=== PATIENT | female | born 2000 | race Caucasian/White ===

== ENCOUNTER 2019-10-24 01:46 | Emergency (ER) | payer MEDICAID, SELFPAY ==
[2018-11-30 08:39] VITALS: BMI 22.8
[2019-10-24 01:48] VITALS: BP 142/96; PULSE 88; RESP 14; TEMP 37.1; O2SAT 99; BMI 32.0
[2019-10-24 02:04] LABS: Bacteria 0 SEEN /hpf (None Seen); Mucous, Urine 0 SEEN /hpf (<or=2+); Red Blood Cells-Urine 0 SEEN /hpf (0-5); White Blood Cells 0 SEEN /hpf (0-5)
[2019-10-24 02:05] LABS: Color, Urine Yellow (Yellow); Glucose, Dipstick Normal (Normal); Ketone-Dipstick Negative (Negative); Leukocyte Esterase-Dipstick Negative /ul (Negative); Nitrite-Dipstick Negative (Negative); Occult Blood-Urine Negative /ul (Negative); Protein-Dipstick Negative (Negative); Urine Bilirubin Dipstick Negative (Negative); Urine Clarity Clear (Clear); Urine Urobilinogen Normal (Normal); Urine pH 6.5 (5.0 - 8.0)
[2019-10-24 02:12] LABS: Internal QC Validated? YES +Cl - CLEAR BKGD; Pregnancy, Urine Positive Negative
[2019-10-24 02:13] LABS: Squamous Epithelial Cells - UA 0-5 SEEN /hpf (5-10)
--- NOTE | 2019-10-24 02:19 | ED.DCSUM_ITS ---
History of Present Illness Chief Complaint: Complaint Informant: Patient Narrative: 19-year-old female presents with concern for positive test. Patient presented because she wanted confirm her . States that she took for several tests at home all which were positive. [place] like she might have a urinary tract infection coming on as well. Denies any fever, chills, abdominal pain, vaginal bleeding. Last menstrual period was 5 weeks ago. Past Medical History - Allergies and Home Meds Allergies/Adverse Reactions: Allergies azithromycin [From Zithromax Z-Malcolm] Allergy (Verified 11/30/18 08:37) Unknown Penicillins Allergy (Verified 11/30/18 08:37) Unknown cephalexin monohydrate [From Keflex] Adverse Reaction (Verified 06/25/14 21:27) Itching Primary Care Physician: Darcy Haynes,Out of [Primary Care Provider] - Past Medical History: None Surgical History: no surgical history Lives: Spouse/ Significant Other Smoking Status: Current every day smoker Alcohol: None Drugs: None Review of Systems General: Denies: Chills, Fever, Sweats Eyes: Denies: Visual changes - bilaterally, Diplopia ENT: Denies: Rhinorrhea, Sore throat Cardiovascular: Denies: Chest pain, Palpitations Respiratory: Denies: Dyspnea, Cough, Dyspnea on exertion Gastrointestinal: Denies: Abdominal pain, Nausea, Vomiting, Diarrhea, Melena, Hematochezia Genitourinary: Denies: Dysuria, Hematuria, Frequency Musculoskeletal: Denies: Back pain, Extremity Pain Skin: Denies: Rash, Wounds Neurological: Denies: Headache, Weakness, Numbness Physical Exam Vital Signs/Narrative: Vital Signs Temp Pulse Resp BP Pulse Ox 10/24/19 01:48 98.7 F 88 14 142/96 H 99 Inital Vital Signs reviewed: Yes General: Well nourished, Well developed, No Acute Distress Head: Normocephalic, Atraumatic Eyes: Perrl, EOMI ENT: Moist mucous membranes, No rhinorrhea Neck: Supple, Nontender Cardiovascular: Regular rate, Regular rhythm, No murmurs Respiratory: No distress, CTA bilaterally, Chest nontender Abdomen: Soft, Nontender, Nondistended, Normal bowel sounds Back: Nontender, Normal Inspection Extremities: Nontender, No edema Skin: Normal color, No rash Neurological: Alert, Oriented x3, Cranial nerves II-XII grossly intact, Normal Strength, Normal Sensation Psychological: Normal affect, Normal Mood Diagnostic/Tx/Re-eval Laboratory Data 10/24/19 10/24/19 01:57 01:57 Urine Color Yellow Urine Clarity Clear Urine pH 6.5 Ur Specific [place] 1.020 Urine Protein Negative Urine Glucose (UA) Normal Urine Ketones Negative Urine Occult Blood Negative Urine Nitrite Negative Urine Bilirubin Negative Urine Urobilinogen Normal Ur Leukocyte Esterase Negative Urine RBC 0 SEEN Urine WBC 0 SEEN Ur Squamous Epith Cells 0-5 SEEN Urine Bacteria 0 SEEN Urine Mucus 0 SEEN Urine Test Positive H - Medical Decision Making Appears well and nontoxic. test positive. No evidence of UTI. Patient already has appointment with director advertising in the next 1 week. Patient is already taking vitamin. Discharged home in stable condition. ED Disposition - Plan for ED Patient: Disposition: Home or Assisted Living Diagnosis: Instructions: ED CARE
== END 2019-10-24 02:27 | disposition home or self-care (01) ==
PROVIDERS: Emergency Provider Emergency Medicine; PCP Nurse Practitioner Family
DX: Z32.01 Encounter for pregnancy test, result positive (principal); F17.200 Nicotine dependence, unspecified, uncomplicated; Z88.0 Allergy status to penicillin; Z88.1 Allergy status to other antibiotic agents
CPT/HCPCS: 81001; 81025; 99282

== ENCOUNTER → 2020-03-31 10:33 | Outpatient (REF) | payer MEDICAID, SELFPAY | LOC: LABSPEC 10:33 | PROVIDERS: PCP Nurse Practitioner Family; Referring Provider Family Medicine; Visit Provider Family Medicine | DX: Z03.818 Encounter for observation for suspected exposure to other biological agents ruled out (principal) | CPT/HCPCS: 87635; U0003 ==

== ENCOUNTER 2020-05-13 14:50 | Outpatient (CLI) | payer MEDICAID, SELFPAY ==
[2020-05-13 14:55] VITALS: BP 142/99; PULSE 106; RESP 15; TEMP 36.7; O2SAT 98; BMI 32.9
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
[2020-05-13 15:49] VITALS: BP 123/82; PULSE 94; RESP 16; O2SAT 98
[2020-05-13 15:53] LABS: Absolute Lymphocyte Count 1.89 X10^3/uL (0.83-4.51); Absolute Neutrophil Count 12.4 X10^3/uL (2.0-7.7); Basophil# 0.05 X10^3/uL; Basophil% 0.3 % (0-1); Eosinophil# 0.05 X10^3/uL; Eosinophils% 0.3 % (0-5); Hematocrit 39.3 % (37-47); Hemoglobin 12.7 g/dL (12.0-15.0); Lymphocyte # 1.89 X10^3/ul (4.0); Lymphocyte % 12.4 % (19-41); Mean Corp Hgb Conc 32.3 g/dL (32-36); Mean Corpuscular Hgb 28.7 pg (27.0-32.0); Mean Corpuscular Volume 88.7 fL (81-99); Monocyte# 0.73 X10^3/uL; Monocyte% 4.8 % (0-10); NRBC Flagged by Analyzer 0 % (0-5); Neutrophil # 12.43 X10^3/uL (2.7-7.7); Neutrophil % 81.4 % (47-70); Platelet Count 289 K/mm3 (150-450); RBC Distribution Width CV 12.9 % (11.6-14.6); RBC Distribution Width SD 42.4 fl (35.1-43.9); Red Blood Count 4.43 M/mm3 (4.2-5.4); White Blood Count 15.3 K/mm3 (4.4-11.0)
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
[2020-05-13 16:08] LABS: Anion Gap 7 (5-15); BUN 7 mg/dL (7-18); BUN/Creat Ratio 14.9 RATIO (10-20); Calcium,Total 9.1 mg/dL (8.5-10.1); Chloride 104 mmol/L (98-107); Creatinine, Serum 0.47 mg/dL (0.55-1.02); EST Glomerular Filtration Rate 176 mL/min (>60); Est Glom Filt Rate - Afr Amer 213 mL/min (>60); Estimated Creatinine Clearance 149.75 ml/min; Glucose 73 mg/dL (74-106); Potassium 3.9 mmol/L (3.5-5.1); Sodium Level 135 mmol/L (136-145)
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
[2020-05-13 16:50] LABS: Prothrombin Time (Protime)PT. 12.3 SECONDS (11.7-14.9)
[2020-05-13 17:06] LABS: Partial Thromboplast Time 26.9 Seconds (24.1-36.2)
[2020-05-13 17:44] VITALS: BP 111/76; PULSE 105; RESP 16; O2SAT 98
--- NOTE | 2020-05-13 17:45 | ED.RN ---
rn did not administer tylenol because the patient was in ultra sound when ordered. patient returned to ed and then was transferred to ob for monitoring.
[2020-05-13 17:49] VITALS: BP 111/76; PULSE 105; RESP 16; TEMP 36.8; O2SAT 98
[2020-05-13] MEDS: Betamethasone/Betamethasone 30 MG/5 ML Vial 12 MG IM (18:16)
[2020-05-13] MEDS: Acetaminophen 500 MG Tablet 1000 MG PO (18:50)
[2020-05-13] MEDS: Lactated Ringers 1,000 ML 75 ML IV (18:52)
[2020-05-13 19:32] VITALS: BP 118/70; PULSE 89; TEMP 36.7; O2SAT 98
[2020-05-13 19:49] VITALS: BMI 32.9
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
[2020-05-13 22:44] LABS: Fibrinogen 403 mg/dl (203-444)
[2020-05-13] MEDS: oxyCODONE 5 MG Tablet PO (23:04)
[2020-05-14] VITALS (10 sets, daily range): BP systolic 75–114; BP diastolic 30–56; PULSE 91–109; TEMP 36.3–37.2; O2SAT 96–97
[2020-05-14 01:50] LABS: Mucous, Urine 0 SEEN /hpf (<or=2+); Red Blood Cells-Urine 0 SEEN /hpf (0-5); Squamous Epithelial Cells - UA 0 SEEN /hpf (5-10); White Blood Cells 0 SEEN /hpf (0-5)
[2020-05-14 01:56] LABS: Color, Urine Yellow (Yellow); Glucose, Dipstick 100 mg/dl (Normal); Ketone-Dipstick Negative (Negative); Leukocyte Esterase-Dipstick Negative /ul (Negative); Nitrite-Dipstick Negative (Negative); Occult Blood-Urine Negative /ul (Negative); Protein-Dipstick Negative (Negative); Specific Gravity, Urine 1.005 (1.002-1.030); Urine Bilirubin Dipstick Negative (Negative); Urine Clarity Clear (Clear); Urine Urobilinogen Normal (Normal)
[2020-05-14 02:02] LABS: Bacteria 1+ /hpf (None Seen)
[2020-05-14 02:09] LABS: Amphetamine Urine VISTA NEGATIVE (<1000 ng/mL); Barbiturate Urine VISTA NEGATIVE (< 200 ng/mL); Benzodiazepine Urine VISTA NEGATIVE (< 200 ng/mL); Cocaine Urine VISTA NEGATIVE (< 300 ng/mL); Ecstacy Urine VISTA NEGATIVE (< 500 ng/mL); Methadone Urine VISTA NEGATIVE (< 300 ng/mL); PCP Urine VISTA NEGATIVE (< 25 ng/mL); THC Urine VISTA NEGATIVE (< 50 ng/mL); Vista UDS pH Range 6
[2020-05-14] MEDS: Lactated Ringers 1,000 ML 75 ML IV (06:56)
[2020-05-14] MEDS: Acetaminophen 500 MG Tablet 1000 MG PO ×2 (07:33→15:35)
[2020-05-14 08:36] LABS: Absolute Lymphocyte Count 1.16 X10^3/uL (0.83-4.51); Absolute Neutrophil Count 12.8 X10^3/uL (2.0-7.7); Basophil# 0.01 X10^3/uL; Basophil% 0.1 % (0-1); Hematocrit 32.8 % (37-47); Hemoglobin 11.1 g/dL (12.0-15.0); Lymphocyte # 1.16 X10^3/ul (4.0); Mean Corp Hgb Conc 33.8 g/dL (32-36); Mean Corpuscular Hgb 29.6 pg (27.0-32.0); Mean Corpuscular Volume 87.5 fL (81-99); Mean Platelet Vol. 11.7 fl (6.2-12.0); Monocyte# 0.44 X10^3/uL; NRBC Flagged by Analyzer 0 % (0-5); Neutrophil # 12.81 X10^3/uL (2.7-7.7); Neutrophil % 87.9 % (47-70); Platelet Count 288 K/mm3 (150-450); RBC Distribution Width CV 12.9 % (11.6-14.6); RBC Distribution Width SD 40.7 fl (35.1-43.9); Red Blood Count 3.75 M/mm3 (4.2-5.4); White Blood Count 14.6 K/mm3 (4.4-11.0)
[2020-05-14 09:09] LABS: Fibrinogen 387 mg/dl (203-444)
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
[2020-05-14] MEDS: Betamethasone/Betamethasone 30 MG/5 ML Vial 12 MG IM (18:12)
== END 2020-05-14 18:20 | disposition home or self-care (01) ==
LOC: ED 16:17 → WPOUT 17:39 → WP 17:40
PROVIDERS: Emergency Provider Emergency Medicine; PCP Nurse Practitioner Family; Visit Provider Advanced Practice Midwife
DX: O9A.213 Injury, poisoning and certain other consequences of external causes complicating pregnancy, third trimester (principal); R10.9 Unspecified abdominal pain; V43.52XA Car driver injured in collision with other type car in traffic accident, initial encounter; Y92.410 Unspecified street and highway as the place of occurrence of the external cause; S39.91XA Unspecified injury of abdomen, initial encounter; Z87.891 Personal history of nicotine dependence; Z88.0 Allergy status to penicillin; Z88.1 Allergy status to other antibiotic agents; Z3A.34 34 weeks gestation of pregnancy
CPT/HCPCS: 96360; 96361 ×11; 36415; 59025; 59050; 71045; 73610; 73630; 74177; 76816; 76819; 80048; 80307; 81001; 85025; 85384; 85610; 85730; 86900; 86901; 87086; 87088; 96372; 99218; 99285; J7120; Q9967; G0378; J0702

== ENCOUNTER 2020-06-03 | Outpatient (CLI) | payer MEDICAID, SELFPAY ==
[2020-06-03 00:09] VITALS: BP 113/63; PULSE 95; TEMP 37.1; O2SAT 96
[2020-06-03 00:19] VITALS: BMI 33.8
[2020-06-03 00:35] LABS: Color, Urine Yellow (Yellow); Glucose, Dipstick Normal (Normal); Ketone-Dipstick Negative (Negative); Leukocyte Esterase-Dipstick 25 /ul (Negative); Nitrite-Dipstick Negative (Negative); Occult Blood-Urine Negative /ul (Negative); Protein-Dipstick 15 mg/dl (Negative); Specific Gravity, Urine 1.025 (1.002-1.030); Urine Bilirubin Dipstick Negative (Negative); Urine Clarity Clear (Clear); Urine Urobilinogen Normal (Normal)
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
== END 2020-06-03 01:30 | disposition home or self-care (01) ==
PROVIDERS: PCP Nurse Practitioner Family; Referring Provider Obstetrics & Gynecology; Visit Provider Obstetrics & Gynecology
DX: O47.9 False labor, unspecified (principal); Z3A.00 Weeks of gestation of pregnancy not specified; Z88.0 Allergy status to penicillin; Z88.1 Allergy status to other antibiotic agents
CPT/HCPCS: 59025; 59050; 81002; 99218; G0378

== ENCOUNTER 2020-06-19 18:45 | Outpatient (CLI) | payer MEDICAID, SELFPAY ==
[2020-06-19 18:51] VITALS: BMI 34.9
[2020-06-19 19:00] VITALS: BP 109/72; PULSE 84; TEMP 36.6
[2020-06-19 19:18] VITALS: PULSE 90; O2SAT 98
--- NOTE | 2020-06-21 07:30 | OB.TRI.NOTE ---
History of Present Illness Date of Service: 06/19/20 Was patient seen by the physician?: No Reason For Visit: RULE OUT LABOR Date of Service: 06/19/20 Gestational age: 39+ History of Present Illness: 19yo @ 39+ weeks, c/o contractions. Allergies azithromycin [From Zithromax Z-Malcolm] Allergy (Verified 06/20/20 21:01) Rash Penicillins Allergy (Verified 06/20/20 21:01) Rash cephalexin monohydrate [From Keflex] Adverse Reaction (Verified 06/20/20 21:01) Itching Physical Exam Vitals: Vital Signs Temp Pulse BP Pulse Ox 97.9 F 90 109/72 98 06/19/20 19:00 06/19/20 19:18 06/19/20 19:00 06/19/20 19:18 NST - FHR Rate Baby A Baseline: 145 Variability:: Moderate Accelerations:: 15 x 15 Decelerations:: None NST Reactive:: Yes FHR Category:: Category I Uterine Activity:: irregular Impression/Plan 19yo @ 39+ weeks, false labor dc home has elective IOL scheduled
== END 2020-06-19 21:30 | disposition home or self-care (01) ==
LOC: WPOUT 18:48 → WP 18:48
PROVIDERS: PCP Nurse Practitioner Family; Visit Provider Obstetrics & Gynecology
DX: O47.1 False labor at or after 37 completed weeks of gestation (principal); Z3A.39 39 weeks gestation of pregnancy; Z88.0 Allergy status to penicillin; Z88.1 Allergy status to other antibiotic agents
CPT/HCPCS: 59025; 59050; 99218; G0378

== ENCOUNTER 2020-06-20 19:00 | Inpatient (IN) | payer MEDICAID, SELFPAY ==
[2020-06-19 18:51] VITALS: BMI 34.9
[2020-06-20 19:08] VITALS: BMI 34.3
[2020-06-20 19:38] VITALS: BP 126/82; PULSE 96; TEMP 36.7
[2020-06-20] MEDS: Lactated Ringers 1,000 ML 50 ML IV (19:45)
[2020-06-20 20:00] LABS: Absolute Lymphocyte Count 1.93 X10^3/uL (0.83-4.51); Absolute Neutrophil Count 8.2 X10^3/uL (2.0-7.7); Basophil# 0.04 X10^3/uL; Basophil% 0.4 % (0-1); Eosinophil# 0.06 X10^3/uL; Eosinophils% 0.6 % (0-5); Hematocrit 36.4 % (37-47); Hemoglobin 11.7 g/dL (12.0-15.0); Lymphocyte # 1.93 X10^3/ul (4.0); Lymphocyte % 17.7 % (19-41); Mean Corp Hgb Conc 32.1 g/dL (32-36); Mean Corpuscular Hgb 28.4 pg (27.0-32.0); Mean Corpuscular Volume 88.3 fL (81-99); Mean Platelet Vol. 11.8 fl (6.2-12.0); Monocyte# 0.61 X10^3/uL; Monocyte% 5.6 % (0-10); NRBC Flagged by Analyzer 0 % (0-5); Neutrophil # 8.17 X10^3/uL (2.7-7.7); Neutrophil % 75.1 % (47-70); Platelet Count 344 K/mm3 (150-450); RBC Distribution Width CV 13.2 % (11.6-14.6); RBC Distribution Width SD 42.5 fl (35.1-43.9); Red Blood Count 4.12 M/mm3 (4.2-5.4); White Blood Count 10.9 K/mm3 (4.4-11.0)
[2020-06-20 20:22] VITALS: PULSE 88; O2SAT 98
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
[2020-06-20 21:35] LABS: Amphetamine Urine VISTA NEGATIVE (<1000 ng/mL); Barbiturate Urine VISTA NEGATIVE (< 200 ng/mL); Benzodiazepine Urine VISTA NEGATIVE (< 200 ng/mL); Cocaine Urine VISTA NEGATIVE (< 300 ng/mL); Ecstacy Urine VISTA NEGATIVE (< 500 ng/mL); Methadone Urine VISTA NEGATIVE (< 300 ng/mL); PCP Urine VISTA NEGATIVE (< 25 ng/mL); THC Urine VISTA NEGATIVE (< 50 ng/mL); Vista UDS pH Range 6
[2020-06-20 21:58] VITALS: BP 120/78; PULSE 84; O2SAT 98
[2020-06-20] MEDS: Oxytocin 30 units/NS 500 ml 30 UNITS/500 ML IV.SOLN IV (22:05)
[2020-06-20 22:50] VITALS: BP 133/77; PULSE 100; TEMP 36.9; O2SAT 98
[2020-06-20 23:52] VITALS: BP 122/67; PULSE 81
[2020-06-20 23:53] VITALS: PULSE 90; O2SAT 97
[2020-06-21] VITALS (56 sets, daily range): BP systolic 91–142; BP diastolic 54–84; PULSE 77–199; RESP 16–18; TEMP 36.2–37.4; O2SAT 81–99
[2020-06-21] MEDS: fentaNYL 100 MCG/2 ML Ampul IV (00:38)
[2020-06-21] MEDS: 0.9% Saline Lock 10 ML Syringe IV (00:39)
[2020-06-21] MEDS: Lactated Ringers 500 ML 999 ML IV ×2 (03:23→07:58)
[2020-06-21] MEDS: fentaNYL-bupivacaine (epidural) 100 ML BAG EPIDURAL ×2 (04:37→09:26)
[2020-06-21] MEDS: Lactated Ringers 1,000 ML 200 ML IV (07:35)
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
[2020-06-21] MEDS: Ondansetron 4 MG/2 ML Vial IV (09:02)
[2020-06-21] MEDS: Oxytocin 30 units/NS 500 ml 30 UNITS/500 ML IV.SOLN 334 UNITS IV (11:43)
[2020-06-21] MEDS: Methylergonovine 0.2 MG/ML Ampul IM (11:50)
--- NOTE | 2020-06-21 13:22 | PCM.OPRPT ---
Problem List (1) Encounter for induction of labor Status: Acute (2) Bipolar disorder Status: Acute (3) Engages in vaping Status: Acute (4) Depression Status: Acute (5) Anxiety Status: Acute (6) Obesity affecting Status: Acute (7) PTSD (post-traumatic stress disorder) Status: Acute (8) ADHD Status: Acute (9) ASCUS with positive high risk HPV Status: Acute (10) History of marijuana use Status: Acute (11) History of spontaneous Status: Acute Vaginal Delivery Maternal Presentation: Elective Induction Method of Induction: Pitocin, Cytotec Amniotic Membrane Rupture Type: Artificial Amniotic Fluid Description: Clear Final KODAK Source: US <20 weeks Date of Procedure: 06/20/20 Pre-Operative Diagnosis: Induction of labor Post-Operative Diagnosis: Surgery/ Procedure Performed: Spontaneous Vaginal Delivery Type of Anesthesia: Epidural Description of Procedure: Progressed to complete with strong urge to push. of viable female over second degree perineal laceration. Apgars 8,9. head delivered and placed on maternal abdomen. Strong cry. Mouth and nares suctioned for secretions. Cord clamped and cut after pulsations ceased. Pitocin started for active third stage management. Placenta delivered with maternal effort intact, 3 vessel cord. Uterine atony, bimanual compression and Methergine give IM x1. Hemostasis achieved. 2nd degree perineal laceration repaired with 3.0 vicryl under epidural analgesia. Continued bleeding, cervix inspected and revealed possible cervical laceration, called for repair. Hemostasis achieved. arrived and inspected cervix and no laceration present and no further bleeding. Fundus firm, EBL 800ml. Sponge and instrument count correct and vaginal sweep completed. Mom and baby stable. Presentation: Vertex Placental Delivery Description: Spontaneous Placenta Disposition: [facility] Cord Vessel Description: 3 Vessels Cord Entanglement: None Estimated Blood Loss: 800 ml (1 minute): 8 (5 minute): 9 Laceration: Perineal Extension/lac, 2nd degree Medications given after delivery: IV Pitocin, IM Methergin Complications: None - Uterine atony.
[2020-06-21] MEDS: Ibuprofen 600 MG Tablet PO ×2 (15:34→23:57)
--- NOTE | 2020-06-21 17:08 | NURSING ---
Pt C/O of soreness at IV site and wanted the IV taken out - educated pt about the possibility of needing a new IV tomorrow pending AM labs.
--- NOTE | 2020-06-21 17:16 | NURSING ---
FOB stated he is squeamish with babies and does not wish to hold the baby. RN aided pt to the bathroom - baby cried the entire time pt and RN were in the bathroom - FOB did not acknowledge crying baby.
[2020-06-21] MEDS: Acetaminophen 500 MG Tablet 1000 MG PO (19:56)
--- NOTE | 2020-06-21 21:39 | NURSING ---
FOB not present tonight. this RN unsure when he plans to be back. bath demo and swaddle/diaper change demonstration only provided to mother of infant.
--- NOTE | 2020-06-22 00:01 | NURSING ---
Brought pain medication to room per pt request. Upon entry to room, pt's bed height was elevated to this RN's shoulders. Educated pt on safety measures and bed height. Pt states it is too difficult for her to reach the 's crib in a lower height position d/t back discomfort. Again educated pt on safety and leaning over crib at this height puts at risk and if falls from this height occur, can be very dangerous. Pt states, she's not going anywhere. Offered to put the lower foot siderail down to make it easier, but pt states that won't help and she has dealt with this all day. Reiterated safety measures to pt, and lowered bed down to the ground before exiting room.
[2020-06-22 00:13] VITALS: BP 108/57; PULSE 78; RESP 14; TEMP 36.9
--- NOTE | 2020-06-22 02:08 | NURSING ---
this RN entered room to round on pt and infant. bed elevated to highest height, while holding infant in bed. this RN instantly began educating pt on safety measures for . bed should be in lowest position with two side rails up. infant should be lying on her back in sleep sack, in the crib. when this RN was attempting to tell pt about what could happen if the infant was dropped from that height, she said stop, I know exactly what I am doing! My bed and the bassinet are this high at home. it's no different. formulation scientist updated on this RN's findings. will continue to reinforce safety measures.
[2020-06-22 04:55] VITALS: BP 118/62; PULSE 78; RESP 14; TEMP 36.4
[2020-06-22 05:07] LABS: Hematocrit 30.5 % (37-47); Hemoglobin 9.9 g/dL (12.0-15.0); Mean Corp Hgb Conc 32.5 g/dL (32-36); Mean Corpuscular Hgb 28.9 pg (27.0-32.0); Mean Corpuscular Volume 89.2 fL (81-99); Mean Platelet Vol. 11.7 fl (6.2-12.0); Platelet Count 293 K/mm3 (150-450); RBC Distribution Width CV 13.1 % (11.6-14.6); RBC Distribution Width SD 42.5 fl (35.1-43.9); Red Blood Count 3.42 M/mm3 (4.2-5.4); White Blood Count 12.1 K/mm3 (4.4-11.0)
[2020-06-22 08:00] VITALS: BP 106/60; PULSE 84; RESP 20; TEMP 36.3
[2020-06-22] MEDS: Ibuprofen 600 MG Tablet PO (08:02)
[2020-06-22] MEDS: Senna/Docusate Sodium 1 Tablet PO (08:03)
[2020-06-22] MEDS: Dibucaine 30 GM Tube 1 APPLIC TOPICAL (08:03)
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
--- NOTE | 2020-06-22 13:14 | DCINST_ITS ---
Discharge Diet: No Restrictions May resume sexual activity in: 6-8 weeks Additional Instructions: If you experience any of the following, contact your healthcare provider. * Bleeding that soaks a pad every hour for 2 hours * Fever 100.4 or higher * Unrelieved incision or abdominal pain * Swelling, redness, discharge or bleeding from your incision or episiotomy site * Your incision begins to separate * Problems urinating (including inability to urinate or burning while urinating). * Visual changes * Severe headache * Flu-like symptoms * Pain or redness in one of both of your breasts * Pain, warmth, tenderness or swelling in your legs, especially the calf area * Frequent nausea and vomiting * Symptoms of depression or anxiety If you experience any of the following, call 911 or go to the nearest Emergency Room. * Chest pain * Problems breathing * Seizure activity * Partial or complete paralysis of a body part, slurred speech, weakness or drooping of the face, or a sudden inability to walk or hold your balance Allergies/Adverse Reactions: Allergies azithromycin [From Zithromax Z-Malcolm] Allergy (Verified 06/20/20 21:01) Rash Penicillins Allergy (Verified 06/20/20 21:01) Rash cephalexin monohydrate [From Keflex] Adverse Reaction (Verified 06/20/20 21:01) Itching Medications to take at Discharge Pnv No.103/Folic/Om3s/Fish Oil [ Gummies] 1 ea PO DAILY 10/24/19 Please Follow Up With: Kendra Gates CNM When: 2 weeks virtual visit and 6 weeks in office for post Primary Care Physician: Mamie Viera OPTICAL MECHANIC, OPTICAL MECHANIC-C [Primary Care Provider] - Test Results: Test results from this visit will be discussed in further detail at your follow- up appointment, if applicable.
--- NOTE | 2020-06-22 13:14 | PCM.DCVAG ---
Discharge Diet: No Restrictions May resume sexual activity in: 6-8 weeks Additional Instructions: If you experience any of the following, contact your healthcare provider. Bleeding that soaks a pad every hour for 2 hours Fever 100.4 or higher Unrelieved incision or abdominal pain Swelling, redness, discharge or bleeding from your incision or episiotomy site Your incision begins to separate Problems urinating (including inability to urinate or burning while urinating). Visual changes Severe headache Flu-like symptoms Pain or redness in one of both of your breasts Pain, warmth, tenderness or swelling in your legs, especially the calf area Frequent nausea and vomiting Symptoms of depression or anxiety If you experience any of the following, call 911 or go to the nearest Emergency Room. Chest pain Problems breathing Seizure activity Partial or complete paralysis of a body part, slurred speech, weakness or drooping of the face, or a sudden inability to walk or hold your balance Allergies/Adverse Reactions: Allergies azithromycin [From Zithromax Z-Malcolm] Allergy (Verified 06/20/20 21:01) Rash Penicillins Allergy (Verified 06/20/20 21:01) Rash cephalexin monohydrate [From Keflex] Adverse Reaction (Verified 06/20/20 21:01) Itching Medications to take at Discharge Pnv No.103/Folic/Om3s/Fish Oil [ Gummies] 1 ea PO DAILY 10/24/19 Please Follow Up With: Kendra Gates CNM When: 2 weeks virtual visit and 6 weeks in office for post Primary Care Physician: Mamie Viera NP, TITLE SUPERVISOR-C [Primary Care Provider] - Test Results: Test results from this visit will be discussed in further detail at your follow-up appointment, if applicable.
--- NOTE | 2020-06-22 13:45 | CASEMGMT ---
Social Work Labor and Delivery Unit Referral to Katie Brito ([phone], extension [phone]) at [facility] ([facility]) regarding possible early substance exposure to marijuana. Reported other dependency concerns regarding untreated mental health, appearing limited support, MOB's stated intentions to co-sleep withe baby and repeated reinforcement by nursing staff regarding a safe environment for baby in the hospital. Brief maternal and histories provided. Let [facility] know that family is discharging home today. MOB signed [facility] referral form this date, prior to discharge. Faxed referral from to [facility]. Sill need to make [facility] referral. -DEION Gibson, MACHINE CAGE MAKER
--- NOTE | 2020-06-23 11:53 | CASEMGMT ---
Social Work Labor and Delivery unit Help me grow referral submitted through the [facility] assisted care web-based referral system. No other services requested or indicated. Refer to previous social work documentation for other interventions completed during this admission -DEION Gibson, MARK. *Information documented in this note generated via [employer] system*
== END 2020-06-22 13:35 | disposition home or self-care (01) | DRG 560 ==
PROVIDERS: Admitting Provider Advanced Practice Midwife; PCP Nurse Practitioner Family; Visit Provider Advanced Practice Midwife
DX: O75.9 Complication of labor and delivery, unspecified (principal); O62.2 Other uterine inertia; O70.1 Second degree perineal laceration during delivery; F31.9 Bipolar disorder, unspecified; F43.10 Post-traumatic stress disorder, unspecified; O99.344 Other mental disorders complicating childbirth; O99.214 Obesity complicating childbirth; Z37.0 Single live birth; Z3A.40 40 weeks gestation of pregnancy; Z87.891 Personal history of nicotine dependence; F90.9 Attention-deficit hyperactivity disorder, unspecified type; E66.9 Obesity, unspecified
CPT/HCPCS: 59025; 59050; 80307; 85025; 85027; 86850; 86900; 86901; 99218; J7120; A4216; G0378; J2405

== ENCOUNTER 2020-08-31 02:23 | Emergency (ER) | payer MEDICAID, SELFPAY ==
--- NOTE | 2020-08-31 02:35 | EKG12_ITS ---
Test Reason : [facility] Blood Pressure : / mmHG Vent. Rate : 078 BPM Atrial Rate : 078 BPM P-R Int : 136 ms QRS Dur : 098 ms QT Int : 408 ms P-R-T Axes : 052 -26 059 degrees QTc Int : 465 ms Normal sinus rhythm Inferior infarct , age undetermined Abnormal ECG No previous ECGs available Confirmed by MIKE CAICEDO, SANTHOSH ([id number]), map editor PATY WELLS ([id number]) on 09/08/2020 11:24:01 AM Referred By: JENNI Confirmed By:SANTHOSH MCKEON MD
[2020-08-31 03:55] LABS: Bacteria 0 SEEN /hpf (None Seen); Mucous, Urine 0 SEEN /hpf (<or=2+); Red Blood Cells-Urine 0 SEEN /hpf (0-5)
[2020-08-31 03:59] LABS: Absolute Lymphocyte Count 2.42 X10^3/uL (0.83-4.51); Basophil# 0.05 X10^3/uL; Basophil% 0.6 % (0-1); Eosinophil# 0.05 X10^3/uL; Eosinophils% 0.6 % (0-5); Lymphocyte # 2.42 X10^3/ul (0.83-4.51); Mean Corp Hgb Conc 32.5 g/dL (32-36); Mean Corpuscular Hgb 27.8 pg (27.0-32.0); Mean Corpuscular Volume 85.7 fL (81-99); Mean Platelet Vol. 11.6 fl (6.2-12.0); Monocyte# 0.48 X10^3/uL; NRBC Flagged by Analyzer 0 % (0-5); Neutrophil # 5.04 X10^3/uL (2.7-7.7); Neutrophil % 62.6 % (47-70); Platelet Count 296 K/mm3 (150-450); RBC Distribution Width CV 13.7 % (11.6-14.6); RBC Distribution Width SD 42.8 fl (35.1-43.9); Red Blood Count 4.67 M/mm3 (4.2-5.4); White Blood Count 8.1 K/mm3 (4.4-11.0)
[2020-08-31 04:02] LABS: Color, Urine Yellow (Yellow); Glucose, Dipstick Normal (Normal); Ketone-Dipstick Negative (Negative); Specific Gravity, Urine 1.025 (1.002-1.030); Urine Bilirubin Dipstick Negative (Negative); Urine Clarity Clear (Clear)
[2020-08-31 04:03] LABS: ALB/GLOB Ratio 1.1 RATIO (0.9-2.4); AST(SGOT) 25 U/L (15-37); Albumin, Serum 3.7 g/dL (3.2-5.0); BUN 8 mg/dL (7-18); BUN/Creat Ratio 14.3 RATIO (10-20); Calcium,Total 9.1 mg/dL (8.5-10.1); Creatinine, Serum 0.56 mg/dL (0.55-1.02); EST Glomerular Filtration Rate 144 mL/min (>60); Est Glom Filt Rate - Afr Amer 175 mL/min (>60); Globulin 3.5 g/dL (2.2-4.2); Glucose 95 mg/dL (74-106); Leukocyte Esterase-Dipstick 25 /ul (Negative); Nitrite-Dipstick Negative (Negative); Occult Blood-Urine Negative /ul (Negative); Protein, Total 7.2 g/dL (6.4-8.2); Protein-Dipstick Negative (Negative); Squamous Epithelial Cells - UA 5-10 SEEN /hpf (5-10); Urine Urobilinogen Normal (Normal); White Blood Cells 0-5 SEEN /hpf (0-5)
[2020-08-31 04:04] LABS: Alanine Aminotransfer ALT/SGPT 45 U/L (13-56); Alkaline Phosphatase 105 U/L (45-117); Anion Gap 6 (5-15); Chloride 109 mmol/L (98-107); Potassium 3.3 mmol/L (3.5-5.1); Sodium Level 141 mmol/L (136-145)
[2020-08-31 04:05] LABS: Amphetamine Urine VISTA NEGATIVE (<1000 ng/mL); Barbiturate Urine VISTA NEGATIVE (< 200 ng/mL); Benzodiazepine Urine VISTA NEGATIVE (< 200 ng/mL); Cocaine Urine VISTA NEGATIVE (< 300 ng/mL); Ecstacy Urine VISTA NEGATIVE (< 500 ng/mL); Internal QC Validated? YES +Cl - CLEAR BKGD; Methadone Urine VISTA NEGATIVE (< 300 ng/mL); PCP Urine VISTA NEGATIVE (< 25 ng/mL); Pregnancy, Serum, hCG Quali. NEGATIVE Negative; THC Urine VISTA NEGATIVE (< 50 ng/mL); Vista UDS pH Range 5
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
[2020-08-31 05:14] LABS: Alcohol, Blood (Medical)-Serum < 3.0 mg/dL
== END 2020-08-31 08:15 | disposition home or self-care (01) ==
LOC: ED 03:37
PROVIDERS: Emergency Provider Emergency Medicine; PCP Nurse Practitioner Family
DX: F32.9 Major depressive disorder, single episode, unspecified (principal); F41.9 Anxiety disorder, unspecified; Z87.891 Personal history of nicotine dependence
CPT/HCPCS: 36415; 80053; 80307; 81001; 82077; 84703; 85025; 93005; 96372; 99285